=== PATIENT | female | born 1965 | race American Indian/Alaskan Native ===

== ENCOUNTER 2017-06-19 14:28 | Inpatient (IN) | payer BC ==
[~2017-06-19 14:28] MED LIST: ASPIRIN ONE; HEPARIN/ 0.45% NACL-25,000 UNIT/500 ML ONE; NACL 0.9% 1000 ML ONE
[2017-06-19] MEDS ORDERED: NACL 0.9% 1000 ML 1,000 ML ONE (14:34)
[2017-06-19] MEDS ORDERED: HEPARIN 10,000 UNITS/10 ML ONE (14:34)
[2017-06-19] MEDS ORDERED: ZOFRAN ONE (14:34)
[2017-06-19] MEDS ORDERED: HEPARIN/NS 5000 UNIT/500ML(CATH LAB) 1,000 ML IR ONE (14:37)
[2017-06-19] MEDS ORDERED: NITROGLYCERIN SYRINGE 3 ML ONE (14:37)
[2017-06-19] MEDS ORDERED: XYLOCAINE 2% INFILTRATI ONE (14:37)
[2017-06-19] MEDS ORDERED: CALAN ONE (14:37)
[2017-06-19] MEDS ORDERED: BABY ASPIRIN PO ONE (14:41)
--- NOTE | 2017-06-19 14:41 | Emergency Department Report ---
HPI - General Time Seen by Provider: 06/19/17 14:39 - HPI HPI: The patient is a 52-year-old female with a history of diabetes, hypertension, high cholesterol, and whom presents for evaluation of chest pain. The patient reports constant pressure-like midsternal chest pain since approximately 8 AM this morning, moderate in severity, worsening throughout the day. She states that she has experienced on and off similar chest pain during the past 3-4 days. She denies fever, cough, trauma to the chest, hemoptysis, syncope, unilateral leg swelling. She also denies history of previous MO, PE, cancer. ED Review of Systems ROS: Stated complaint: CHEST PAIN Other details as noted in HPI Constitutional: denies: fever ENT: denies: throat or neck pain Respiratory: denies: cough, shortness of breath Cardiovascular: reports: chest pain Endocrine: denies unexplained weight loss or gain Gastrointestinal: denies: abdominal pain, nausea Genitourinary: denies: dysuria Musculoskeletal: denies: leg swelling Skin: denies: rash Neurological: denies: headache Hematological/Lymphatic: denies: easy bleeding or easy bruising Psych: denies sadness or hopelessness Physical Exam - Physical Exam Physical Exam: General: well-nourished, well-developed, no acute distress Head: Normocephalic, atraumatic Eyes: normal sclera ENT: Mucous membranes are pale and dry Neck: trachea midline, neck supple, No neck stiffness, no cervical adenopathy Respiratory: Breath sounds equal bilaterally, no wheezing, rales, or rhonchi Cardio: S1 and S2 present, no murmurs, rubs, gallops, capillary refill is delayed Abdomen: Normoactive bowel sounds, soft abdomen, no rigidity, no guarding or rebound tenderness Musc: No pitting edema Skin: diaphoretic skin Neuro: no facial drooping, normal speech Psych: Normal affect ED Medical Decision Making - Lab Data Result diagrams: 06/19/17 14:45 06/19/17 14:42 - Medical Decision Making The patient was seen and examined by myself. The patient is placed on a client relationship manager and continuous pulse ox. On initial evaluation, the patient was found to be in no distress. Evaluation orders were placed. The patient was given aspirin, nitroglycerin, and IV morphine in route via EMS. EKG exhibits ST elevation in leads 2, 3, aVF, V3, and V4. Code STEMI is called. The on- call net application support specialist Dr. Murrell is contacted. He agrees to accept the patient to the catheter lab for PCI. The on-call hospitalist service was contacted. They agreed to admit the patient. The ED admit order was placed. The patient was admitted in serious condition. Critical care attestation.: If time is entered above; I have spent that time in minutes in the direct care of this critically ill patient, excluding procedure time. ED Disposition Clinical Impression: Acute chest pain, Acute hyperglycemia, ST elevation myocardial infarction ( STEMI) involving left anterior descending (LAD) coronary artery in recovery phase Disposition: DC-[id number] OP ADMIT IP TO THIS HOSP Is pt being admited?: Yes Does the pt Need Aspirin: Yes Condition: Critical Time of Disposition: 14:40
[2017-06-19] MEDS ORDERED: NACL 0.9% 1000 ML 1,000 ML IV ONE ×2 (14:42)
[2017-06-19] MEDS ORDERED: ZOFRAN IV ONE (14:42)
[2017-06-19] MEDS ORDERED: HEPARIN 10,000 UNITS/10 ML IV ONE (14:42)
[2017-06-19] MEDS ORDERED: HEPARIN/NS 5000 UNIT/500ML(CATH LAB) 500 ML IR ONE (14:47)
--- NOTE | 2017-06-19 14:53 | History and Physical Report ---
History of Present Illness Date of examination: 06/19/17 Date of admission: 06/19/2017 Chief complaint: chest pain History of present illness: Pt is a 52 YO female with a past medical history significant for HTN, DM and tobacco use. She is previously unknown to our practice. She presented with c/o chest pain. She reports that for the past 4 days, she has been experiencing intermittent, burning, midsternal chest pain which radiates down her left arm. She denies any clear pattern to this pain and thought it was secondary to indigestion. This morning, she awoke with a little more chest discomfort than usual and the pain got worse throughout the day so she decided to present to ED. She also admits that for the past 1 month, she has been experiencing OSBORNE and midsternal chest pain with minimal activity (climbing a flight of stairs into her apartment). She denies any palpitations, n/v, diaphoresis, dizziness or syncope. Following arrival, ECG demonstrates ST elevations in inferolateral leads and code STEMI was activated. Pt taken to slab tripper for emergent coronary angiography per STEMI protocol. Past History Past Medical History: diabetes, hypertension, other (obesity) Social history: smoking Medications and Allergies Allergies Allergy/AdvReac Type Severity Reaction Status Date / Time Latex, Natural Rubber Allergy Unknown Verified 06/19/17 15:16 Penicillins Allergy Unknown Verified 06/19/17 14:43 Active Meds: Active Medications Sodium Chloride (Nacl 0.9% 1000 Ml) 1,000 mls @ 999 mls/hr IV BOLUS ONE Stop: 06/19/17 15:42 Sodium Chloride (Nacl 0.9% 1000 Ml) 1,000 mls @ 42 mls/hr IV ONCE ONE Stop: 06/20/17 14:30 Review of Systems Constitutional: no weight loss, no weight gain, no fever, no chills, no sweats Ears, nose, mouth and throat: no ear pain, no nose pain, no sinus pressure, no sinus pain Cardiovascular: chest pain, shortness of breath, dyspnea on exertion, high blood pressure, decreased exercise tolerance, no orthopnea, no palpitations, no rapid/irregular heart beat, no edema, no syncope, no lightheadedness, no paroxysmal nocturnal dyspnea, no leg edema Respiratory: shortness of breath, dyspnea on exertion, no cough, no congestion, no pleurisy, no pain on inspiration Gastrointestinal: no abdominal pain, no nausea, no vomiting, no diarrhea, no constipation, no change in bowel habits Genitourinary Female: no pelvic pain, no flank pain, no dysuria, no urinary frequency, no urgency Musculoskeletal: no neck stiffness, no neck pain, no shooting arm pain, no arm numbness/tingling, no low back pain, no shooting leg pain, no leg numbness/ tingling, no redness of joints Integumentary: no rash, no pruritis, no redness, no sores, no wounds Neurological: no head injury, no paralysis, no weakness, no parathesias, no numbness, no tingling, no seizures, no syncope Psychiatric: no anxiety Endocrine: no cold intolerance, no heat intolerance Hematologic/Lymphatic: no easy bruising, no easy bleeding, no lymphadenopathy Allergic/Immunologic: no urticaria, no wheezing, no persistent infections Physical Examination Vital Signs Temp Pulse Resp BP 98.7 F 68 12 92/49 06/19/17 14:32 06/19/17 14:32 06/19/17 14:32 06/19/17 14:32 General appearance: mild distress HEENT: Positive: PERRL Neck: Positive: neck supple, trachea midline Cardiac: Positive: Reg Rate and Rhythm, S1/S2 Lungs: Positive: Decreased Breath Sounds Neuro: Positive: Grossly Intact Abdomen: Positive: Soft. Negative: Tender Skin: Positive: Clear. Negative: Rash, Wound Musculoskeletal: No Fluid Collection, No Pain, Normal Range of Motion Extremities: Absent: edema Results 06/19/17 14:45 06/19/17 14:42 - Imaging and Cardiology Echo: pending EKG: report reviewed, image reviewed EKG interpretations - Telemetry EKG Rhythm: Sinus Rhythm - EKG Sinus rhythms and dysrhythmias: sinus rhythm Repolarization changes or abnormalities: ST or T wave suggestive of ischemia Myocardial infarction: inferior MS (acute or rec, lateral MS (acute or rece Assessment and Plan Assessment: Acute inferolateral STEMI CAD HTN DM Obesity Tobacco use Plan: Pt s/p PCI to LAD. Initiate DAPT, statin, lopressor, lisinopril. Obtain echo. Tx to CCU. The patient has been seen in conjunction with Dr. Alexander who agrees with the assessment and plan of care.
[2017-06-19 14:55] LABS: Mean Corpuscular HGB Conc 31 % (30-34); Mean Corpuscular Volume 77 fl (79-97); Platelet Count 249 K/mm3 (140-440); Red Blood Count 5.31 M/mm3 (3.65-5.03); Red Cell Distribution Width 15.4 % (13.2-15.2)
[2017-06-19 14:56] LABS: Hematocrit 40.8 % (30.3-42.9); Hemoglobin 12.5 gm/dl (10.1-14.3); Mean Corpuscular Hemoglobin 24 pg (28-32)
[2017-06-19 14:59] LABS: INR 0.96 (0.87-1.13); Partial Thromboplastin Time 26.1 Sec. (24.2-36.6)
[2017-06-19] MEDS ORDERED: BENADRYL ONE (15:03)
[2017-06-19] MEDS: VERSED ONE ×2 (15:03→15:17)
[2017-06-19] MEDS: SUBLIMAZE ONE ×3 (15:03→15:59)
[2017-06-19] MEDS: HEPARIN 10,000 UNITS/10 ML ONE ×2 (15:11→15:16)
[2017-06-19 15:12] LABS: BUN/Creatinine Ratio 18; Blood Urea Nitrogen 11 mg/dL (7-17); Calcium 8.8 mg/dL (8.4-10.2); Hemolysis Index 43
--- NOTE | 2017-06-19 15:19 | XRay Report ---
AP CHEST: HISTORY: chest pain No comparison. The interstitium in both lungs is slightly prominent. This probably represents mild interstitial edema. The lungs are clear otherwise. No pleural effusion or pneumothorax. Normal heart and mediastinal structures. The bony thorax is grossly intact. IMPRESSION: Mild pulmonary vascular congestion is suspected.
[2017-06-19] MEDS ORDERED: ALUM-MAG HYDROX-SIMETH 200-200-20MG/5ML ONE (15:50)
[2017-06-19] MEDS ORDERED: BRILINTA ONE (15:50)
[2017-06-19] MEDS ORDERED: D50W (25GM) Syringe IV PRN (16:23)
[2017-06-19] MEDS ORDERED: TYLENOL PO PRN (16:26)
[2017-06-19] MEDS ORDERED: ZOFRAN IV PRN (16:26)
[2017-06-19 17:03] LABS: Basophils % (Manual) 0 % (0.0-1.8); Eosinophils % (Manual) 0 % (0.0-4.3); Total Cells Counted 100
[2017-06-19 17:04] LABS: Anisocytosis 1+; Platelet Estimate Consistent w Auto
--- NOTE | 2017-06-19 17:17 | Cardiac Catherization Report ---
CARDIAC CATHETERIZATION AND CORONARY INTERVENTION REPORT CLINICAL INFORMATION: The patient is a 52-year-old white female with history of hypertension and diabetes having symptoms of chest pain of few months' duration, got worse recently and she is having pain for the last few days and got worse this afternoon. Hence, she came to the Emergency Room at [facility]. EKG showed sinus rhythm with [address] elevations in II, III, aVF and lateral precordial leads. Hence, the patient was brought to the catheterization laboratory as a part of the STEMI protocol on an emergency basis. The patient was explained of the diagnosis and the need for immediate intervention. She understood. She ate not long ago from presentation to the hospital; however, considering the emergency nature, procedure was done immediately. DESCRIPTION OF PROCEDURE: The patient was brought to the catheterization laboratory in nonfasting condition. The patient was prepared with Betadine solution including the right groin area and sterile drapes were applied. The patient was sedated with IV Versed and fentanyl. Subsequently, a right femoral artery puncture was made using 5-Israeli micropuncture needle. A 6-Israeli sheath was introduced. Initially a 6-Israeli JR4 guider was used to engage the right coronary artery. Angiogram showed normal right coronary artery. Hence, a 6-Israeli EBU 3.5 guiding catheter was used to engage the left coronary artery. This showed evidence of tight distal LAD lesion; however LAD is covering the apex and the inferior septum, which can explain her symptoms and EKG changes. After getting the left ventriculogram, this was converted into coronary interventional procedure. The following findings were noted: HEMODYNAMICS: 1. Opening aortic pressure 157/81, left ventricular pressure 157/28. No gradient across the aortic valve. Estimated ejection fraction of 45% -50%. 2. Left ventriculogram done in MORFIN projection using hand injection showed left ventricular size to be upper limits of normal with mild hypokinesis of the distal one-third of the left ventricle. Overall, ejection fraction appears to be lower limits of normal to mildly depressed. Mitral regurgitation could not be evaluated because of limited amount of dye injected. 3. Right coronary artery arises normally from right coronary cusp, nondominant vessel, angiographically smooth and normal. 4. Left coronary artery arises normally from left coronary cusp. LAD showed diffuse calcifications in the proximal, mid, and distal part. Left main without significant disease. Proximal LAD showed mild disease. Mid LAD showed mild irregularities and calcifications. Multiple diagonal branches were seen arising in the mid part. Distal to the origin of these diagonal branches, distal LAD shows long, irregular, probably thrombotic lesion approaching 90% or so in stenosis with NICOLE 3 flow. Distal LAD, which curves around the apex and supplies the inferior septum with mild smooth irregularities. 5. Circumflex artery is a dominant vessel. Circumflex artery and its branch are angiographically smooth and normal. FINAL IMPRESSION: Mild left ventricular dysfunction with hypokinesis of the distal part of the left ventricle including the apex. Ejection fraction around 45-50% with diffuse calcifications of the LAD with tight distal LAD lesion, which was felt to be the culprit lesion for her acute myocardial infarction. Rest of the coronaries showed only mild irregularities and calcifications. At this time, plan is to proceed with intervention of the distal LAD lesion. Coronary intervention of the distal LAD: The patient has indwelling 6-Israeli sheath in the right groin area. The patient has an EBU 3.[address] already. Heparin was given as anticoagulant and subsequently 0.014 inch Paris XT guidewire was advanced into the distal LAD with some difficulty. Lesion was dilated with a 2.5 x 15 mm Trek balloon up to 13 atmospheres with good result. NICOLE 3 flow was noted on the diagnostic angiograms. Subsequently, attempt was made to insert a 3.0 x 18 mm Resolute Integrity stent. However, could not track to the lesion on the Paris guidewire. Also the guiding catheter is not giving good support. Even though Iron Man was used as a second wire still with this guiding catheter. Stent could not be advanced to the lesion. Hence, the whole system was changed. The EBU 3.75 guiding catheter with sideholes was used to engage the left coronary artery. Subsequently, an Iron Man wire was advanced into the mid LAD and the Paris XT wire was advanced all the way to the very distal LAD. Same stent 3.0 x 18 mm Resolute Integrity stent passed without difficulty. It was placed under fluoroscopy in the distal LAD lesion. Dilated initially to 11 atmospheres and subsequently to 13 atmospheres each for 1 minute. Final angiogram showed very good result with no proximal or distal dissection, no perforation noted, no distal embolization noted. The patient tolerated the procedure well without any significant chest pain or cardiac arrhythmia or drop in the blood pressure. At the end of the procedure, angiograms of the right femoral artery were obtained. When it was felt appropriate, a 6-Israeli Perclose device was applied in a standard fashion without difficulty and good hemostasis was achieved. The patient tolerated the procedure well. No untoward complications were noted. The patient's moderate sedation was monitored until the end of the procedure. Patient was sedated at 15:00 hrs,monitoerd upto 15:52 hrs.Patient tolerated sedation well. FINAL IMPRESSION: Uncomplicated drug-eluting stent placement of the distal LAD lesion, 90% lesion was reduced to 0%, probably thrombotic and NICOLE 3 flow was noted pre and post-procedure without any complications of perforation, dissection, or embolization. Perclose device was used to attain hemostasis. Findings were explained to the patient. The patient will be monitored in CCU for the next 24 hours. The patient was given aspirin in addition to Brilinta as the antiplatelet agent. The patient will be started on Lopressor 50 mg b.i.d., lisinopril 10 mg once a day in addition to atorvastatin 80 mg. The patient is a diabetic. Blood sugars will be monitored. No untoward complications were noted. JOB# [id number] BIRGIT/MINNIE BLANCHARD
[2017-06-19 18:45] LABS: Creatine Kinase MB 3.2 ng/mL (0.0-4.0)
[2017-06-19 18:59] LABS: Chol/HDL Ratio 3.95 %
[2017-06-19 21:55] LABS: Creatine Kinase MB 4.9 ng/mL (0.0-4.0)
[2017-06-19] MEDS ORDERED: LOPRESSOR PO SCH (22:00)
[2017-06-19] MEDS: BRILINTA PO SCH (22:51)
[2017-06-19] MEDS: LOPRESSOR PO SCH (22:51)
[2017-06-19] MEDS: HumuLIN R SUB-Q SCH (22:55)
[2017-06-20 04:53] LABS: Basophils # (Auto) 0.1 K/mm3 (0.0-0.1); Basophils % (Auto) 0.7 % (0.0-1.8); Eosinophils # (Auto) 0.1 K/mm3 (0.0-0.4); Eosinophils % (Auto) 0.7 % (0.0-4.3); Hematocrit 36.9 % (30.3-42.9); Hemoglobin 11.6 gm/dl (10.1-14.3); Lymphocytes # (Auto) 3.2 K/mm3 (1.2-5.4); Lymphocytes % (Auto) 33.2 % (13.4-35.0); Mean Corpuscular HGB Conc 31 % (30-34); Mean Corpuscular Volume 74 fl (79-97); Monocytes # (Auto) 0.5 K/mm3 (0.0-0.8); Monocytes % (Auto) 5.5 % (0.0-7.3); Platelet Count 208 K/mm3 (140-440); Red Blood Count 4.97 M/mm3 (3.65-5.03); Red Cell Distribution Width 14.6 % (13.2-15.2)
[2017-06-20 05:00] LABS: Mean Corpuscular Hemoglobin 23 pg (28-32)
[2017-06-20 05:18] LABS: Creatine Kinase MB 8.8 ng/mL (0.0-4.0)
[2017-06-20 05:21] LABS: BUN/Creatinine Ratio 20; Blood Urea Nitrogen 12 mg/dL (7-17); Calcium 8.5 mg/dL (8.4-10.2); Hemolysis Index 2
--- NOTE | 2017-06-20 05:38 | XRay Report ---
FINAL REPORT PROCEDURE: XR CHEST 1V AP TECHNIQUE: Chest radiograph anteroposterior view. CPT 44357 HISTORY: post pci COMPARISON: No prior studies are available for comparison. FINDINGS: Heart: Normal. Mediastinum/Vessels: Normal. Lungs/Pleural space: Lungs are expanded. There are no active infiltrates. There are no effusions or pneumothoraces.. Bony thorax: No acute osseous abnormality. Life support devices: None. IMPRESSION: No acute cardiopulmonary abnormality.
[2017-06-20] MEDS: HumuLIN R SUB-Q SCH ×4 (08:00→21:45)
[2017-06-20] MEDS: BABY ASPIRIN PO SCH (09:34)
[2017-06-20] MEDS: BRILINTA PO SCH ×2 (09:35→21:40)
[2017-06-20] MEDS: LOPRESSOR PO SCH ×2 (09:35→21:40)
--- NOTE | 2017-06-20 09:52 | Progress Note ---
Assessment and Plan Assessment: Acute inferolateral STEMI - s/p PCI to LAD CAD HTN DM - HgbA1C 12.5 Obesity Tobacco use Plan: Optimize anti-hypertensive regimen. Await echo. Consult hospitalists for assistance with DM management. Tx pt out of ICU to telemetry. Assessment and plan reviewed with pt at bedside. The patient has been seen in conjunction with Dr. Alexander who agrees with the assessment and plan of care. Subjective Date of service: 06/20/17 Principal diagnosis: STEMI Interval history: pt resting comfortably, c/o OSBORNE, denies any c/o chest pain. VSS. Objective Last Vital Signs Temp 98.4 F 06/20/17 04:00 Pulse 81 06/20/17 09:36 Resp 21 06/20/17 08:01 BP 156/78 06/20/17 09:36 Pulse Ox 97 06/20/17 09:27 - Physical Examination HEENT: Positive: PERRL Neck: Positive: neck supple, trachea midline Cardiac: Positive: Reg Rate and Rhythm, S1/S2 Lungs: Positive: clear to auscultation Neuro: Positive: Grossly Intact Abdomen: Positive: Soft. Negative: Tender Skin: Positive: Clear. Negative: Rash, Wound Musculoskeletal: No Fluid Collection, No Pain, Normal Range of Motion Extremities: Absent: edema - Labs and Meds Cardiac Enzymes 06/19/17 06/19/17 06/19/17 Range/Units 14:42 18:08 21:25 CK-MB (CK-2) 1.0 3.2 4.9 H (0.0-4.0) ng/mL 06/20/17 Range/Units 04:35 CK-MB (CK-2) 8.8 H (0.0-4.0) ng/mL Coagulation 06/19/17 Range/Units 14:32 PT 13.3 (12.2-14.9) Sec. INR 0.96 (0.87-1.13) APTT 26.1 (24.2-36.6) Sec. Lipids 06/19/17 Range/Units 18:08 Triglycerides 66 (2-149) mg/dL Cholesterol 158 (50-199) mg/dL HDL Cholesterol 40 (40-59) mg/dL Cholesterol/HDL Ratio 3.95 % CBC 06/19/17 06/20/17 Range/Units 14:45 04:35 WBC 12.0 H 9.7 (4.5-11.0) K/mm3 RBC 5.31 H 4.97 (3.65-5.03) M/mm3 Hgb 12.5 11.6 (10.1-14.3) gm/dl Hct 40.8 36.9 (30.3-42.9) % Plt Count 249 208 (140-440) K/mm3 Lymph # Medical Dermatologist 3.2 [place] # Medical Dermatologist 0.5 Eos # Medical Dermatologist 0.1 Baso # Medical Dermatologist 0.1 Comprehensive Metabolic Panel 06/19/17 06/20/17 Range/Units 14:42 04:35 Sodium 136 L 135 L (137-145) mmol/L Potassium 4.3 4.2 (3.6-5.0) mmol/L Chloride 95.9 L 95.7 L (98-107) mmol/L Carbon Dioxide 23 28 (22-30) mmol/L BUN 11 12 (7-17) mg/dL Creatinine 0.6 L 0.6 L (0.7-1.2) mg/dL Glucose 374 H 318 H (65-100) mg/dL Calcium 8.8 8.5 (8.4-10.2) mg/dL - Imaging and Cardiology EKG: report reviewed, image reviewed Echo: pending - Telemetry EKG Rhythm: Sinus Rhythm - EKG Sinus rhythms and dysrhythmias: sinus rhythm Repolarization changes or abnormalities: ST or T wave suggestive of ischemia Myocardial infarction: inferior MT (acute or rec, lateral MT (acute or rece
[2017-06-20] MEDS ORDERED: ZESTRIL PO SCH ×2 (10:00)
[2017-06-20] MEDS ORDERED: ZESTRIL PO ONE (11:00)
--- NOTE | 2017-06-20 11:55 | Consultation ---
History of Present Illness Consult date: 06/20/17 Requesting physician: EBONY HERNANDEZ Reason for consult: other (Acute STEMI) History of present illness: PULMONARY/CCM CONSULT NOTE (Full dictation # [id number]) Please see dictated notes for full details Past History Past Medical History: diabetes, hypertension, other (obesity) Social history: smoking Medications and Allergies Allergies Allergy/AdvReac Type Severity Reaction Status Date / Time Latex, Natural Rubber Allergy Unknown Verified 06/19/17 15:16 Penicillins Allergy Unknown Verified 06/19/17 14:43 Home Medications Medication Instructions Recorded Confirmed Last Taken Type Aspirin [Aspirin BABY CHEW TAB] 81 mg PO QDAY tab.chew 06/20/17 Unknown Rx AtorvaSTATin [Lipitor] 80 mg PO QHS #30 tablet 06/20/17 Unknown Rx Lisinopril [Zestril TAB] 20 mg PO QDAY #30 tablet 06/20/17 Unknown Rx Metoprolol [Lopressor TAB] 50 mg PO BID #60 tablet 06/20/17 Unknown Rx Ticagrelor [Brilinta] 90 mg PO BID #180 tablet 06/20/17 Unknown Rx Active Meds: Active Medications Acetaminophen (Tylenol) 325 mg PO Q6H PRN PRN Reason: Pain, Mild (1-3) Aspirin (Baby Aspirin) 81 mg PO QDAY [facility] Last Admin: 06/20/17 09:34 Dose: 81 mg Atorvastatin Calcium (Lipitor) 80 mg PO QHS [facility] Last Admin: 06/19/17 22:51 Dose: 80 mg Dextrose (D50w (25gm) Syringe) 50 ml IV PRN PRN PRN Reason: Hypoglycemia Sodium Chloride (Nacl 0.9% 1000 Ml) 1,000 mls @ 42 mls/hr IV ONCE ONE Stop: 06/20/17 14:30 Insulin Human Regular (Novolin R) 0 units SUB-Q ACHS [facility]; Protocol Last Admin: 06/20/17 08:00 Dose: 4 units Lisinopril (Zestril) 20 mg PO QDAY [facility] Metoprolol Tartrate (Lopressor) 50 mg PO BID [facility] Last Admin: 06/20/17 09:35 Dose: 50 mg Ondansetron HCl (Zofran) 4 mg IV Q4H PRN PRN Reason: Nausea And Vomiting Ticagrelor (Brilinta) 90 mg PO BID [facility] Last Admin: 06/20/17 09:35 Dose: 90 mg Physical Examination Vital signs: Vital Signs Resp Pulse Ox 12 89 06/19/17 14:28 06/19/17 14:28 Results - Laboratory Findings CBC and BMP: 06/20/17 04:35 06/21/17 06:42 PT/INR, D-dimer PT 13.3 Sec. (12.2-14.9) 06/19/17 14:32 INR 0.96 (0.87-1.13) 06/19/17 14:32 Abnormal lab findings: Abnormal Labs 06/19/17 06/19/17 06/19/17 14:42 14:45 18:08 WBC 12.0 H RBC 5.31 H MCV 77 L MCH 24 L RDW 15.4 H Lymphocytes % (Manual) 42.0 H Sodium 136 L Chloride 95.9 L Creatinine 0.6 L Glucose 374 H POC Glucose Hemoglobin A1c CK-MB (CK-2) CK-MB (CK-2) Rel Index 4.8 H Troponin T 0.051 H D 06/19/17 06/19/17 06/20/17 21:25 21:39 04:35 WBC RBC MCV 74 L MCH 23 L RDW Lymphocytes % (Manual) Sodium Chloride Creatinine Glucose POC Glucose 288 H Hemoglobin A1c CK-MB (CK-2) 4.9 H CK-MB (CK-2) Rel Index 5.7 H Troponin T 0.107 H* D 06/20/17 06/20/17 06/20/17 04:35 04:35 08:14 WBC RBC MCV MCH RDW Lymphocytes % (Manual) Sodium 135 L Chloride 95.7 L Creatinine 0.6 L Glucose 318 H POC Glucose 281 H Hemoglobin A1c 12.5 H CK-MB (CK-2) 8.8 H CK-MB (CK-2) Rel Index 7.6 H Troponin T 0.126 H*
--- NOTE | 2017-06-20 13:58 | Discharge Summary ---
<EBONY HERNANDEZ - Last Filed: 06/20/17 14:08> Providers - Providers Date of Admission: 06/19/17 17:05 Date of discharge: 06/21/17 Attending physician: KAYLEN SIMPSON 06/19/17 Consult to Cardiac Rehabilitation [CONS] Routine Reason For Exam: post pci 06/19/17 16:19 Consult to Physician [CONS] Routine Consulting Provider: JORGE BRUNO Reason For Exam: critical care management s/p stemi Place consult to:: Dr Bruon Notified:: y Phone number called:: IN person Was contact made?: Yes If yes, spoke with:: Dr Bruno 06/19/17 16:23 Consult to Dietitian/Nutrition [CONS] Routine Physician Instructions: Reason For Exam: Reason for Consult: diabetes 06/20/17 10:13 Consult to Physician [CONS] Routine Consulting Provider: CONNOR SILVEIRA Reason For Exam: DM Place consult to:: Jordana Notified:: y Was contact made?: Yes If yes, spoke with:: Dr Silveira Time called:: 11:30 Primary care physician: PULLMAN CONDUCTOR Hospitalization Reason for admission: chest pain; STEMI Condition: Critical Pertinent studies: LHC and echo - see reports Procedures: LHC and echo - see reports Hospital course: Pt is a 52 YO female with a past medical history significant for HTN, DM and tobacco use. She presented with c/o chest pain and was found to have ST elevations in inferolateral leads in ECG and thus code STEMI was activated. She was taken to analytical lab technician for emergent coronary angiography and underwent PCI of LAD. She remained clinically and hemodynamically stable throughout the procedure. She is medically stable for discharge. Disposition: DC-01 TO HOME OR SELFCARE - Discharge Diagnoses (1) ST elevation myocardial infarction (STEMI) of inferolateral wall Status: Acute (2) CAD (coronary artery disease) Status: Chronic (3) Stented coronary artery Status: Chronic (4) HTN (hypertension) Status: Chronic (5) Uncontrolled diabetes mellitus Status: Chronic (6) Dyslipidemia Status: Chronic (7) Obesity Status: Chronic (8) Tobacco use Status: Chronic Core Measure Documentation - Palliative Care Palliative Care/ Comfort Measures: Not Applicable - Core Measures Any of the following diagnoses?: acute FL - Acute FL Discharge Requirements Aspirin at discharge: Yes JAIRO/ARB for LVSD if EF <40%: Yes Beta marry at discharge: Yes Statin for LDL = or >100 mg/dl on DC: Yes Exam - Constitutional Vitals: Temp Pulse Resp BP Pulse Ox 98.4 F 73 15 156/92 98 06/20/17 04:00 06/20/17 12:23 06/20/17 12:00 06/20/17 12:23 06/20/17 12:00 General appearance: Present: no acute distress - EENT Eyes: Present: PERRL, EOM intact ENT: hearing intact, clear oral mucosa - Neck Neck: Present: supple, normal ROM - Respiratory Respiratory effort: normal - Cardiovascular Rhythm: regular Heart Sounds: Present: S1 & S2 - Extremities Extremities: no ischemia, pulses intact, pulses symmetrical Peripheral Pulses: within normal limits - Abdominal General gastrointestinal: Present: soft, non-tender - Integumentary Integumentary: Present: clear, warm, dry - Musculoskeletal Musculoskeletal: strength equal bilaterally, generalized weakness - Psychiatric Psychiatric: appropriate mood/affect, cooperative Plan Activity: advance as tolerated Diet: low fat, low cholesterol, low salt Wound: open to air, keep clean and dry, per your surgeon's advice Follow up with: PRIMARY CARE, [Primary Care Provider] - 7 Days KAYLEN SIMPSON MD [Staff Physician] - 7 Days ([facility], 07/02/2017 @ 2:45PM) Prescriptions: AtorvaSTATin [Lipitor] 80 mg PO QHS #30 tablet Lisinopril [Zestril TAB] 20 mg PO QDAY #30 tablet Metoprolol [Lopressor TAB] 50 mg PO BID #60 tablet Ticagrelor [Brilinta] 90 mg PO BID #180 tablet <KAYLEN SIMPSON - Last Filed: 06/22/17 20:36> Providers - Providers Date of Admission: 06/19/17 17:05 Attending physician: KAYLEN SIMPSON 06/19/17 Consult to Cardiac Rehabilitation [CONS] Routine Reason For Exam: post pci 06/19/17 16:19 Consult to Physician [CONS] Routine Consulting Provider: JORGE BRUNO Reason For Exam: critical care management s/p stemi Place consult to:: Dr Bruno Notified:: y Phone number called:: IN person Was contact made?: Yes If yes, spoke with:: Dr Bruno 06/19/17 16:23 Consult to Dietitian/Nutrition [CONS] Routine Physician Instructions: Reason For Exam: Reason for Consult: diabetes 06/20/17 10:13 Consult to Physician [CONS] Routine Consulting Provider: CONNOR SILVEIRA Reason For Exam: DM Place consult to:: Jordana Notified:: y Was contact made?: Yes If yes, spoke with:: Dr Silveira Time called:: 11:30 Primary care physician: PULLMAN CONDUCTOR Exam - Constitutional Vitals: Temp Pulse Resp BP Pulse Ox 99.1 F 88 18 125/85 100 06/21/17 08:57 06/21/17 10:00 06/21/17 08:57 06/21/17 08:57 06/21/17 08:57
--- NOTE | 2017-06-20 14:42 | Progress Note ---
Assessment and Plan Assessment and plan: Diabetes mellitus type 2. Patient is on metformin at home for diabetic management. However, given the recent catheterization/contrast, metformin has been held. We will increase Lantus to 10 units at bedtime. Continue sliding scale insulin. Acute inferolateral STEMI. Patient is status post PCI to the LAD. Continue DAPT, statin, lopressor, lisinopril. Follow-up echocardiogram. CAD. As above. HTN. Continue current antidepressant medications. Obesity. Tobacco use. Disposition. Patient will be transferred to the floor. History Interval history: Pt is a 52 YO female with a past medical history significant for HTN, DM and tobacco use who presented with c/o chest pain. She reported that for the past 4 days, she has been experiencing intermittent, burning, midsternal chest pain which radiates down her left arm prior to admission. She denies any clear pattern to this pain and thought it was secondary to indigestion. She also admitted that for the past 1 month, she has been experiencing OSBORNE and midsternal chest pain with minimal activity (climbing a flight of stairs into her apartment). She denied any palpitations, n/v, diaphoresis, dizziness or syncope. Following arrival to the emergency room, ECG demonstrates ST elevations in inferolateral leads and code STEMI was activated. Pt taken to laborer beam house for emergent coronary angiography per STEMI protocol. Patient underwent PCI to the LAD. Patient remained in the ICU overnight. Patient is doing well post procedure. No current complaints of chest pain or shortness of breath. Cardiology consulted the hospitalist service for diabetic management. Hospitalist Physical - Constitutional Vitals: Temp Pulse Resp BP Pulse Ox 98.4 F 73 15 156/92 98 06/20/17 04:00 06/20/17 12:23 06/20/17 12:00 06/20/17 12:23 06/20/17 12:00 General appearance: Present: no acute distress - EENT Eyes: Present: PERRL, EOM intact ENT: hearing intact, clear oral mucosa, dentition normal - Neck Neck: Present: supple, normal ROM - Respiratory Respiratory effort: normal Respiratory: bilateral: CTA - Cardiovascular Rhythm: regular Heart Sounds: Present: S1 & S2. Absent: gallop, rub - Extremities Extremities: no ischemia, No edema, Full ROM - Abdominal General gastrointestinal: soft, non-tender, non-distended, normal bowel sounds - Integumentary Integumentary: Present: clear, warm, dry - Neurologic Neurologic: CNII-XII intact, moves all extremities Results - Labs CBC & Chem 7: 06/20/17 04:35 06/20/17 04:35 Labs: Laboratory Last Values WBC 9.7 K/mm3 (4.5-11.0) 06/20/17 04:35 RBC 4.97 M/mm3 (3.65-5.03) 06/20/17 04:35 Hgb 11.6 gm/dl (10.1-14.3) 06/20/17 04:35 Hct 36.9 % (30.3-42.9) 06/20/17 04:35 MCV 74 fl (79-97) L 06/20/17 04:35 MCH 23 pg (28-32) L 06/20/17 04:35 MCHC 31 % (30-34) 06/20/17 04:35 RDW 14.6 % (13.2-15.2) 06/20/17 04:35 Plt Count 208 K/mm3 (140-440) 06/20/17 04:35 Lymph % (Auto) 33.2 % (13.4-35.0) 06/20/17 04:35 Hawkins % (Auto) 5.5 % (0.0-7.3) 06/20/17 04:35 Eos % (Auto) 0.7 % (0.0-4.3) 06/20/17 04:35 Baso % (Auto) 0.7 % (0.0-1.8) 06/20/17 04:35 Lymph # 3.2 K/mm3 (1.2-5.4) 06/20/17 04:35 Hawkins # 0.5 K/mm3 (0.0-0.8) 06/20/17 04:35 Eos # 0.1 K/mm3 (0.0-0.4) 06/20/17 04:35 Baso # 0.1 K/mm3 (0.0-0.1) 06/20/17 04:35 Add Manual Diff Complete 06/19/17 14:45 Total Counted 100 06/19/17 14:45 Seg Neutrophils % 59.9 % (40.0-70.0) 06/20/17 04:35 Seg Neuts % (Manual) 51.0 % (40.0-70.0) 06/19/17 14:45 Band Neutrophils % 0 % 06/19/17 14:45 Lymphocytes % (Manual) 42.0 % (13.4-35.0) H 06/19/17 14:45 Reactive Lymphs % (Man) 0 % 06/19/17 14:45 Monocytes % (Manual) 7.0 % (0.0-7.3) 06/19/17 14:45 Eosinophils % (Manual) 0 % (0.0-4.3) 06/19/17 14:45 Basophils % (Manual) 0 % (0.0-1.8) 06/19/17 14:45 Metamyelocytes % 0 % 06/19/17 14:45 Myelocytes % 0 % 06/19/17 14:45 Promyelocytes % 0 % 06/19/17 14:45 Blast Cells % 0 % 06/19/17 14:45 Nucleated RBC % Not Reportable 06/19/17 14:45 Seg Neutrophils # 5.8 K/mm3 (1.8-7.7) 06/20/17 04:35 Seg Neutrophils # Man 6.1 K/mm3 (1.8-7.7) 06/19/17 14:45 Band Neutrophils # 0.0 K/mm3 06/19/17 14:45 Lymphocytes # (Manual) 5.0 K/mm3 (1.2-5.4) 06/19/17 14:45 Abs React Lymphs (Man) 0.0 K/mm3 06/19/17 14:45 Monocytes # (Manual) 0.8 K/mm3 (0.0-0.8) 06/19/17 14:45 Eosinophils # (Manual) 0.0 K/mm3 (0.0-0.4) 06/19/17 14:45 Basophils # (Manual) 0.0 K/mm3 (0.0-0.1) 06/19/17 14:45 Metamyelocytes # 0.0 K/mm3 06/19/17 14:45 Myelocytes # 0.0 K/mm3 06/19/17 14:45 Promyelocytes # 0.0 K/mm3 06/19/17 14:45 Blast Cells # 0.0 K/mm3 06/19/17 14:45 WBC Morphology Not Reportable 06/19/17 14:45 Hypersegmented Neuts Not Reportable 06/19/17 14:45 Hyposegmented Neuts Not Reportable 06/19/17 14:45 Hypogranular Neuts Not Reportable 06/19/17 14:45 Smudge Cells Not Reportable 06/19/17 14:45 Toxic Granulation Not Reportable 06/19/17 14:45 Toxic Vacuolation Not Reportable 06/19/17 14:45 Dohle Bodies Not Reportable 06/19/17 14:45 Pelger-Huet Anomaly Not Reportable 06/19/17 14:45 Chance Rods Not Reportable 06/19/17 14:45 Platelet Estimate Consistent w auto 06/19/17 14:45 Clumped Platelets Not Reportable 06/19/17 14:45 Plt Clumps, EDTA Not Reportable 06/19/17 14:45 Large Platelets Not Reportable 06/19/17 14:45 Giant Platelets Not Reportable 06/19/17 14:45 Platelet Satelliting Not Reportable 06/19/17 14:45 Plt Morphology Comment Not Reportable 06/19/17 14:45 RBC Morphology Not Reportable 06/19/17 14:45 Dimorphic RBCs Not Reportable 06/19/17 14:45 Polychromasia Not Reportable 06/19/17 14:45 Hypochromasia Not Reportable 06/19/17 14:45 Poikilocytosis Not Reportable 06/19/17 14:45 Anisocytosis 1+ 06/19/17 14:45 Microcytosis Not Reportable 06/19/17 14:45 Macrocytosis Not Reportable 06/19/17 14:45 Spherocytes Not Reportable 06/19/17 14:45 Pappenheimer Bodies Not Reportable 06/19/17 14:45 Sickle Cells Not Reportable 06/19/17 14:45 Target Cells Not Reportable 06/19/17 14:45 Tear Drop Cells Not Reportable 06/19/17 14:45 Ovalocytes Not Reportable 06/19/17 14:45 Helmet Cells Not Reportable 06/19/17 14:45 [place] Bodies Not Reportable 06/19/17 14:45 [place] Rings Not Reportable 06/19/17 14:45 [place] Cells Not Reportable 06/19/17 14:45 Bite Cells Not Reportable 06/19/17 14:45 Crenated Cell Not Reportable 06/19/17 14:45 Elliptocytes Not Reportable 06/19/17 14:45 Acanthocytes (Spur) Not Reportable 06/19/17 14:45 Rouleaux Not Reportable 06/19/17 14:45 Hemoglobin C Crystals Not Reportable 06/19/17 14:45 Schistocytes Not Reportable 06/19/17 14:45 Malaria parasites Not Reportable 06/19/17 14:45 [place] Bodies Not Reportable 06/19/17 14:45 Hem Pathologist Commnt No 06/19/17 14:45 PT 13.3 Sec. (12.2-14.9) 06/19/17 14:32 INR 0.96 (0.87-1.13) 06/19/17 14:32 APTT 26.1 Sec. (24.2-36.6) 06/19/17 14:32 Sodium 135 mmol/L (137-145) L 06/20/17 04:35 Potassium 4.2 mmol/L (3.6-5.0) 06/20/17 04:35 Chloride 95.7 mmol/L (98-107) L 06/20/17 04:35 Carbon Dioxide 28 mmol/L (22-30) 06/20/17 04:35 Anion Gap 16 mmol/L 06/20/17 04:35 BUN 12 mg/dL (7-17) 06/20/17 04:35 Creatinine 0.6 mg/dL (0.7-1.2) L 06/20/17 04:35 Estimated GFR > 60 ml/min 06/20/17 04:35 BUN/Creatinine Ratio 20 % 06/20/17 04:35 Glucose 318 mg/dL (65-100) H 06/20/17 04:35 POC Glucose 251 (70-105) H 06/20/17 12:18 Hemoglobin A1c 12.5 % (4-6) H 06/20/17 04:35 Calcium 8.5 mg/dL (8.4-10.2) 06/20/17 04:35 Total Creatine Kinase 115 units/L (30-135) 06/20/17 04:35 CK-MB (CK-2) 8.8 ng/mL (0.0-4.0) H 06/20/17 04:35 CK-MB (CK-2) Rel Index 7.6 (0-4) H 06/20/17 04:35 Troponin T 0.126 ng/mL (0.00-0.029) H* 06/20/17 04:35 Triglycerides 66 mg/dL (2-149) 06/19/17 18:08 Cholesterol 158 mg/dL (50-199) 06/19/17 18:08 LDL Cholesterol Direct 105 mg/dL (50-130) 06/19/17 18:08 HDL Cholesterol 40 mg/dL (40-59) 06/19/17 18:08 Cholesterol/HDL Ratio 3.95 % 06/19/17 18:08 Blood Type B POSITIVE 06/19/17 14:30 Antibody Screen Negative 06/19/17 14:30
[2017-06-20] MEDS ORDERED: D50W (25GM) Syringe IV PRN (14:43)
[2017-06-20] MEDS: LANTUS SUB-Q SCH (17:37)
[2017-06-20] MEDS ORDERED: LANTUS SUB-Q SCH (22:00)
[2017-06-21] MEDS: HumuLIN R SUB-Q SCH ×2 (00:43→07:53)
[2017-06-21 07:55] LABS: Creatine Kinase MB 2.6 ng/mL (0.0-4.0)
[2017-06-21 07:57] LABS: BUN/Creatinine Ratio 28; Blood Urea Nitrogen 11 mg/dL (7-17); Calcium 8.8 mg/dL (8.4-10.2); Hemolysis Index 11
[2017-06-21 08:58] VITALS: BP 125/85
[2017-06-21] MEDS: LANTUS SUB-Q SCH (09:00)
[2017-06-21] MEDS ORDERED: ZESTRIL PO SCH (10:00)
[2017-06-21] MEDS: BABY ASPIRIN PO SCH (10:45)
[2017-06-21] MEDS: LOPRESSOR PO SCH (10:47)
[2017-06-21] MEDS: BRILINTA PO SCH (10:47)
--- NOTE | 2017-06-21 11:22 | Consultation ---
History of Present Illness - Reason for Consult Consult date: 06/20/17 DM management - History of Present Illness Pt is a 52 YO female with a past medical history significant for HTN, DM and tobacco use who presented with c/o chest pain. She reported that for the past 4 days, she has been experiencing intermittent, burning, midsternal chest pain which radiates down her left arm prior to admission. She denies any clear pattern to this pain and thought it was secondary to indigestion. She also admitted that for the past 1 month, she has been experiencing OSBORNE and midsternal chest pain with minimal activity (climbing a flight of stairs into her apartment). She denied any palpitations, n/v, diaphoresis, dizziness or syncope. Following arrival to the emergency room, ECG demonstrates ST elevations in inferolateral leads and code STEMI was activated. Pt taken to cardiac catheterization technician for emergent coronary angiography per STEMI protocol. Patient underwent PCI to the LAD. Patient remained in the ICU overnight. Patient is doing well post procedure. No current complaints of chest pain or shortness of breath. Cardiology consulted the hospitalist service for diabetic management. Past History Past Medical History: diabetes, hypertension, other (obesity) Social history: smoking Medications and Allergies Allergies Allergy/AdvReac Type Severity Reaction Status Date / Time Latex, Natural Rubber Allergy Unknown Verified 06/19/17 15:16 Penicillins Allergy Unknown Verified 06/19/17 14:43 Home Medications Medication Instructions Recorded Confirmed Last Taken Type Aspirin [Aspirin BABY CHEW TAB] 81 mg PO QDAY tab.chew 06/20/17 Unknown Rx AtorvaSTATin [Lipitor] 80 mg PO QHS #30 tablet 06/20/17 Unknown Rx Lisinopril [Zestril TAB] 20 mg PO QDAY #30 tablet 06/20/17 Unknown Rx Metoprolol [Lopressor TAB] 50 mg PO BID #60 tablet 06/20/17 Unknown Rx Ticagrelor [Brilinta] 90 mg PO BID #180 tablet 06/20/17 Unknown Rx Active Meds: Active Medications Acetaminophen (Tylenol) 325 mg PO Q6H PRN PRN Reason: Pain, Mild (1-3) Aspirin (Baby Aspirin) 81 mg PO QDAY [facility] Last Admin: 06/21/17 10:45 Dose: 81 mg Atorvastatin Calcium (Lipitor) 80 mg PO QHS [facility] Last Admin: 06/20/17 21:39 Dose: 80 mg Dextrose (D50w (25gm) Syringe) 50 ml IV PRN PRN PRN Reason: Hypoglycemia Insulin Glargine (Lantus) 5 units SUB-Q QAMDIAB [facility] Last Admin: 06/21/17 09:00 Dose: 5 units Insulin Glargine (Lantus) 10 units SUB-Q QHS [facility] Last Admin: 06/20/17 21:44 Dose: 10 units Insulin Human Regular (Novolin R) 0 units SUB-Q ACHS [facility]; Protocol Last Admin: 06/21/17 07:53 Dose: 2 units Lisinopril (Zestril) 20 mg PO QDAY [facility] Last Admin: 06/21/17 10:46 Dose: 20 mg Metoprolol Tartrate (Lopressor) 50 mg PO BID [facility] Last Admin: 06/21/17 10:47 Dose: 50 mg Ondansetron HCl (Zofran) 4 mg IV Q4H PRN PRN Reason: Nausea And Vomiting Ticagrelor (Brilinta) 90 mg PO BID [facility] Last Admin: 06/21/17 10:47 Dose: 90 mg Review of Systems All systems: negative Exam - Constitutional Vitals: Temp Pulse Resp BP Pulse Ox 99.1 F 88 18 125/85 100 06/21/17 08:57 06/21/17 10:00 06/21/17 08:57 06/21/17 08:57 06/21/17 08:57 General appearance: Present: no acute distress, well-nourished - EENT Eyes: Present: PERRL ENT: hearing intact, clear oral mucosa - Neck Neck: Present: supple, normal ROM - Respiratory Respiratory effort: normal Respiratory: bilateral: CTA - Cardiovascular Heart Sounds: Present: S1 & S2. Absent: rub, click - Extremities Extremities: pulses symmetrical, No edema Peripheral Pulses: within normal limits - Abdominal General gastrointestinal: Present: soft, non-tender, non-distended, normal bowel sounds Female genitourinary: Present: normal - Integumentary Integumentary: Present: clear, warm, dry - Musculoskeletal Musculoskeletal: gait normal, strength equal bilaterally - Psychiatric Psychiatric: appropriate mood/affect, intact judgment & insight - Neurologic Neurologic: CNII-XII intact, moves all extremities Results - Labs CBC & Chem 7: 06/20/17 04:35 06/21/17 06:42 Labs: Abnormal lab results 06/20/17 06/20/17 06/20/17 Range/Units 12:18 17:20 21:19 Creatinine (0.7-1.2) mg/dL Glucose (65-100) mg/dL POC Glucose 251 H 300 H 221 H (70-105) Troponin T (0.00-0.029) ng/mL 06/21/17 Range/Units 06:42 Creatinine 0.4 L (0.7-1.2) mg/dL Glucose 180 H (65-100) mg/dL POC Glucose (70-105) Troponin T 0.065 H D (0.00-0.029) ng/mL Assessment and Plan Diabetes mellitus type 2. Patient is on metformin at home for diabetic management. However, given the recent catheterization/contrast, metformin has been held. We will increase Lantus to 10 units at bedtime. Continue sliding scale insulin. Acute inferolateral STEMI. Patient is status post PCI to the LAD. Continue DAPT, statin, lopressor, lisinopril. Follow-up echocardiogram. CAD. As above. HTN. Continue current antidepressant medications. Obesity. Tobacco use. Disposition. Patient will be transferred to the floor.
--- NOTE | 2017-06-21 11:23 | Progress Note ---
Assessment and Plan Assessment and plan: Diabetes mellitus type 2. Resume metformin at home diabetic regimen. Consider Lantus nightly. Follow-up with PCP. Acute inferolateral STEMI. Patient is status post PCI to the LAD. Continue DAPT, statin, lopressor, lisinopril. Follow-up echocardiogram. CAD. As above. HTN. Continue current antidepressant medications. Obesity. Tobacco use. Disposition. History Interval history: No new issues overnight. Hospitalist Physical - Constitutional Vitals: Temp Pulse Resp BP Pulse Ox 99.1 F 88 18 125/85 100 06/21/17 08:57 06/21/17 10:00 06/21/17 08:57 06/21/17 08:57 06/21/17 08:57 General appearance: Present: no acute distress - EENT Eyes: Present: PERRL, EOM intact ENT: hearing intact, clear oral mucosa, dentition normal - Neck Neck: Present: supple, normal ROM - Respiratory Respiratory effort: normal Respiratory: bilateral: CTA - Cardiovascular Rhythm: regular Heart Sounds: Present: S1 & S2. Absent: gallop, rub - Extremities Extremities: no ischemia, No edema, Full ROM - Abdominal General gastrointestinal: soft, non-tender, non-distended, normal bowel sounds - Integumentary Integumentary: Present: clear, warm, dry - Neurologic Neurologic: CNII-XII intact, moves all extremities Results - Labs CBC & Chem 7: 06/20/17 04:35 06/21/17 06:42 Labs: Laboratory Last Values WBC 9.7 K/mm3 (4.5-11.0) 06/20/17 04:35 RBC 4.97 M/mm3 (3.65-5.03) 06/20/17 04:35 Hgb 11.6 gm/dl (10.1-14.3) 06/20/17 04:35 Hct 36.9 % (30.3-42.9) 06/20/17 04:35 MCV 74 fl (79-97) L 06/20/17 04:35 MCH 23 pg (28-32) L 06/20/17 04:35 MCHC 31 % (30-34) 06/20/17 04:35 RDW 14.6 % (13.2-15.2) 06/20/17 04:35 Plt Count 208 K/mm3 (140-440) 06/20/17 04:35 Lymph % (Auto) 33.2 % (13.4-35.0) 06/20/17 04:35 [place] % (Auto) 5.5 % (0.0-7.3) 06/20/17 04:35 Eos % (Auto) 0.7 % (0.0-4.3) 06/20/17 04:35 Baso % (Auto) 0.7 % (0.0-1.8) 06/20/17 04:35 Lymph # 3.2 K/mm3 (1.2-5.4) 06/20/17 04:35 [place] # 0.5 K/mm3 (0.0-0.8) 06/20/17 04:35 Eos # 0.1 K/mm3 (0.0-0.4) 06/20/17 04:35 Baso # 0.1 K/mm3 (0.0-0.1) 06/20/17 04:35 Add Manual Diff Complete 06/19/17 14:45 Total Counted 100 06/19/17 14:45 Seg Neutrophils % 59.9 % (40.0-70.0) 06/20/17 04:35 Seg Neuts % (Manual) 51.0 % (40.0-70.0) 06/19/17 14:45 Band Neutrophils % 0 % 06/19/17 14:45 Lymphocytes % (Manual) 42.0 % (13.4-35.0) H 06/19/17 14:45 Reactive Lymphs % (Man) 0 % 06/19/17 14:45 Monocytes % (Manual) 7.0 % (0.0-7.3) 06/19/17 14:45 Eosinophils % (Manual) 0 % (0.0-4.3) 06/19/17 14:45 Basophils % (Manual) 0 % (0.0-1.8) 06/19/17 14:45 Metamyelocytes % 0 % 06/19/17 14:45 Myelocytes % 0 % 06/19/17 14:45 Promyelocytes % 0 % 06/19/17 14:45 Blast Cells % 0 % 06/19/17 14:45 Nucleated RBC % Not Reportable 06/19/17 14:45 Seg Neutrophils # 5.8 K/mm3 (1.8-7.7) 06/20/17 04:35 Seg Neutrophils # Man 6.1 K/mm3 (1.8-7.7) 06/19/17 14:45 Band Neutrophils # 0.0 K/mm3 06/19/17 14:45 Lymphocytes # (Manual) 5.0 K/mm3 (1.2-5.4) 06/19/17 14:45 Abs React Lymphs (Man) 0.0 K/mm3 06/19/17 14:45 Monocytes # (Manual) 0.8 K/mm3 (0.0-0.8) 06/19/17 14:45 Eosinophils # (Manual) 0.0 K/mm3 (0.0-0.4) 06/19/17 14:45 Basophils # (Manual) 0.0 K/mm3 (0.0-0.1) 06/19/17 14:45 Metamyelocytes # 0.0 K/mm3 06/19/17 14:45 Myelocytes # 0.0 K/mm3 06/19/17 14:45 Promyelocytes # 0.0 K/mm3 06/19/17 14:45 Blast Cells # 0.0 K/mm3 06/19/17 14:45 WBC Morphology Not Reportable 06/19/17 14:45 Hypersegmented Neuts Not Reportable 06/19/17 14:45 Hyposegmented Neuts Not Reportable 06/19/17 14:45 Hypogranular Neuts Not Reportable 06/19/17 14:45 Smudge Cells Not Reportable 06/19/17 14:45 Toxic Granulation Not Reportable 06/19/17 14:45 Toxic Vacuolation Not Reportable 06/19/17 14:45 Dohle Bodies Not Reportable 06/19/17 14:45 Pelger-Huet Anomaly Not Reportable 06/19/17 14:45 Chance Rods Not Reportable 06/19/17 14:45 Platelet Estimate Consistent w auto 06/19/17 14:45 Clumped Platelets Not Reportable 06/19/17 14:45 Plt Clumps, EDTA Not Reportable 06/19/17 14:45 Large Platelets Not Reportable 06/19/17 14:45 Giant Platelets Not Reportable 06/19/17 14:45 Platelet Satelliting Not Reportable 06/19/17 14:45 Plt Morphology Comment Not Reportable 06/19/17 14:45 RBC Morphology Not Reportable 06/19/17 14:45 Dimorphic RBCs Not Reportable 06/19/17 14:45 Polychromasia Not Reportable 06/19/17 14:45 Hypochromasia Not Reportable 06/19/17 14:45 Poikilocytosis Not Reportable 06/19/17 14:45 Anisocytosis 1+ 06/19/17 14:45 Microcytosis Not Reportable 06/19/17 14:45 Macrocytosis Not Reportable 06/19/17 14:45 Spherocytes Not Reportable 06/19/17 14:45 Pappenheimer Bodies Not Reportable 06/19/17 14:45 Sickle Cells Not Reportable 06/19/17 14:45 Target Cells Not Reportable 06/19/17 14:45 Tear Drop Cells Not Reportable 06/19/17 14:45 Ovalocytes Not Reportable 06/19/17 14:45 Helmet Cells Not Reportable 06/19/17 14:45 [place]an[place] Bodies Not Reportable 06/19/17 14:45 [place] Rings Not Reportable 06/19/17 14:45 [place]mo Cells Not Reportable 06/19/17 14:45 Bite Cells Not Reportable 06/19/17 14:45 Crenated Cell Not Reportable 06/19/17 14:45 Elliptocytes Not Reportable 06/19/17 14:45 Acanthocytes (Spur) Not Reportable 06/19/17 14:45 Rouleaux Not Reportable 06/19/17 14:45 Hemoglobin C Crystals Not Reportable 06/19/17 14:45 Schistocytes Not Reportable 06/19/17 14:45 Malaria parasites Not Reportable 06/19/17 14:45 [place] Bodies Not Reportable 06/19/17 14:45 Hem Pathologist Commnt No 06/19/17 14:45 PT 13.3 Sec. (12.2-14.9) 06/19/17 14:32 INR 0.96 (0.87-1.13) 06/19/17 14:32 APTT 26.1 Sec. (24.2-36.6) 06/19/17 14:32 Sodium 141 mmol/L (137-145) 06/21/17 06:42 Potassium 3.9 mmol/L (3.6-5.0) 06/21/17 06:42 Chloride 100.3 mmol/L (98-107) 06/21/17 06:42 Carbon Dioxide 26 mmol/L (22-30) 06/21/17 06:42 Anion Gap 19 mmol/L 06/21/17 06:42 BUN 11 mg/dL (7-17) 06/21/17 06:42 Creatinine 0.4 mg/dL (0.7-1.2) L 06/21/17 06:42 Estimated GFR > 60 ml/min 06/21/17 06:42 BUN/Creatinine Ratio 28 % 06/21/17 06:42 Glucose 180 mg/dL (65-100) H 06/21/17 06:42 POC Glucose 221 (70-105) H 06/20/17 21:19 Hemoglobin A1c 12.5 % (4-6) H 06/20/17 04:35 Calcium 8.8 mg/dL (8.4-10.2) 06/21/17 06:42 Total Creatine Kinase 87 units/L (30-135) 06/21/17 06:42 CK-MB (CK-2) 2.6 ng/mL (0.0-4.0) 06/21/17 06:42 CK-MB (CK-2) Rel Index 2.9 (0-4) 06/21/17 06:42 Troponin T 0.065 ng/mL (0.00-0.029) H D 06/21/17 06:42 Triglycerides 66 mg/dL (2-149) 06/19/17 18:08 Cholesterol 158 mg/dL (50-199) 06/19/17 18:08 LDL Cholesterol Direct 105 mg/dL (50-130) 06/19/17 18:08 HDL Cholesterol 40 mg/dL (40-59) 06/19/17 18:08 Cholesterol/HDL Ratio 3.95 % 06/19/17 18:08 Blood Type B POSITIVE 06/19/17 14:30 Antibody Screen Negative 06/19/17 14:30
--- NOTE | 2017-06-22 23:12 | Consultation ---
PULMONARY CRITICAL CARE CONSULT NOTE CONSULTING PHYSICIAN: Dr. Alexander REASON FOR CONSULTATION: Acute ST elevation myocardial infarction, status post coronary intervention, need for ICU monitoring. CHIEF COMPLAINT AND HISTORY OF PRESENT ILLNESS: As follows, the patient is a 52-year-old -[place] female with past medical history significant amongst other things for diagnoses of diabetes as well as high blood pressure, presented to the Emergency Room complaining of 3-4 days' of chest pain. It was intermittent and burning at times. It was mostly midsternal, radiating down her left arm, initially thought nothing of it, thought it was due to indigestion. On the morning of presentation, the pain and discomfort was worse than usual. It was worse with exertion. It got worse throughout the whole day, so she came into the Emergency Room. She also admitted due to dyspnea on exertion really for the past 3-4 weeks, described as worse than expected pain when climbing a flight of stairs into her apartment. She had denied any actual loss of consciousness, palpitations, or diaphoresis; denied nausea, vomiting in the Emergency Room. EKG revealed ST elevations in the inferolateral leads. A code STEMI was called and the patient was transferred emergently to the public works lab[facility]. While in the public works [facility], she had percutaneous intervention to the left anterior descending and postop she was transferred to the Intensive Care Unit. When I stopped by to see her, she was resting peacefully, denied any recurrence of the chest pain, denied any nausea or vomiting, denied fevers or chills. When asked about her tobacco use/abuse history, she admits to about a 10+ pack year tobacco smoking history. This really is as much of the history of presentation. I should mention that also diabetes is poorly controlled. PAST MEDICAL HISTORY: Diabetes, hypertension. She is obese. Tobacco use disorder. PAST SURGICAL HISTORY: Unknown. MEDICATIONS: She was on at the time I stopped by to see her, according to the medication administration record, had included the following: Tylenol p.r.n., aspirin 81 mg p.o. daily, Lipitor 80 mg p.o. at bedtime, insulin via sliding scale, lisinopril 20 mg p.o. daily, Lopressor 50 mg p.o. b.i.d., Zofran 4 mg IV q. 4 hours p.r.n. nausea and vomiting, Brilinta 90 mg p.o. b.i.d. ALLERGIES: TO LATEX AND TO PENICILLINS. Nature of this allergy is unknown. DIET: Morbidly obese. She denies significant weight loss or gain in the preceding few weeks to months. FAMILY AND SOCIAL HISTORY: Apparently lives in the community. She does have a tobacco smoking history about 10+ pack years. Denies illicit drug use or abuse. Family history otherwise is noncontributory. REVIEW OF SYSTEMS: Denies any loss of consciousness. No new onset seizures. She had the dyspnea on exertion. She denied orthopnea; denied gross hematochezia or melena; denies gross hematuria or dysuria. Complete 13-system review of systems obtained. Pertinent positives and/or negatives as in the body of history above, otherwise they are noncontributory. PHYSICAL EXAMINATION: VITAL SIGNS: At initial presentation and since she has been afebrile presentation, temperature 98.7 degrees Fahrenheit, pulse of 68, respiratory rate of 12, blood pressure 92/49, oxygen sats were ____, inspired oxygen concentration was not recorded. GENERAL: Morbidly obese -[place] female, looks her stated age, normocephalic, atraumatic, talking to me in full sentences at worst in mild respiratory distress. Head, Eyes, EARS, NOSE AND THROAT: She is anicteric. No conjunctival erythema. Oropharynx is a Mallampati #3-4 oropharynx. Oropharynx is moist. NECK: Grossly no jugular venous distention. Grossly, no thyromegaly. Grossly, no palpable lymph nodes in the supraclavicular or submandibular lymph node chains. LUNGS: Auscultation of both lung valdez are unremarkable. Lungs are clear bilaterally; however, breath sounds are diminished. ABDOMEN: Soft, full, bowel sounds are positive, nontender. No palpable hepatomegaly. EXTREMITIES: Without overt digital clubbing. No cyanosis, no pedal edema. Dorsalis pedis pulses are palpable bilaterally. NEUROLOGIC: The pupils are equal, round, reactive to light about 3 mm. Extraocular muscle movements are intact. She moves all 4 extremities spontaneously. The skin is of normal turgor. No rash, no cellulitis. LABORATORY AND DIAGNOSTIC DATA: From my review are as follows: Admission white cell count 12,000 with the hemoglobin of 12.5, hematocrit of 40.8, platelet count 249. No band forms. INR is 0.96. Serum sodium is 136, potassium 4.3, chloride 96, bicarbonate 23, BUN 11, creatinine 0.6, glucose 374. Initial troponin was within normal limits. It has peaked as of now at 0.126. BUN and creatinine are still within normal limits. MCV is 74; however, the hemoglobin is 11.6. I do not have any microbiology studies for review. Chest x-ray was done. I have reviewed the chest x-ray. I have also reviewed the radiologist's interpretation and I do agree essentially mild interstitial edema. The film is rotated to the left, fluid in the minor fissure. No gross pneumothorax, no gross bony fractures that I can see. No overt cardiomegaly. That was the admission chest x-ray. Today's chest x-ray shows mild improvement in the interstitial edema pattern. ASSESSMENT: 1. Acute coronary syndrome with an acute ST elevation myocardial infarction. 2. Poorly controlled diabetes. I am saying this because her hemoglobin A1c was measured at 12.5. 3. Obesity. 4. History of hypertension. 5. Tobacco use disorder. PLAN: 1. I have stressed the importance of her being as compliant as she can be with her disease-modifying medications with relation to the acute coronary syndrome as she certainly is going to be at risk for decompensation and complications. I have expressed that also the importance that she controls her diabetes much better and pay more attention to her health. I have also told her that she will need to be evaluated in a Sleep Clinic to rule out comorbid presence of obstructive sleep apnea, which her phenotype suggests she may have in some of the history she is given Tobacco cessation has been strongly consult. She is going to be on GI prophylaxis. Flu and pneumonia vaccination will be addressed per protocol. Thank you very much for the consult. We will plan to transfer her out of the Intensive Care Unit. She is looking stable. If it is okay with the primary physician, she will be transferred to the telemetry floor. We will follow along. We will make further recommendations as picture progresses/becomes clearer. JOB# [id number] DORENE/MINNIE
== END 2017-06-21 12:22 | disposition home or self-care (01) | DRG 246 ==
LOC: ED 14:28 → OR 15:29 → CC1 17:05 → 4A 06-20 14:15
PROVIDERS: ADMIT Internal Medicine; ATTEND Internal Medicine
PROC: 027034Z Dilation of Coronary Artery, One Artery with Drug-eluting Intraluminal Device, Percutaneous Approach (ICD-10-PCS; principal; 2017-06-19)
PROC: 4A023N7 Measurement of Cardiac Sampling and Pressure, Left Heart, Percutaneous Approach (ICD-10-PCS; 2017-06-19)
PROC: B2151ZZ Fluoroscopy of Left Heart using Low Osmolar Contrast (ICD-10-PCS; 2017-06-19)
PROC: B2111ZZ Fluoroscopy of Multiple Coronary Arteries using Low Osmolar Contrast (ICD-10-PCS; 2017-06-19)
DX: I25.10 Atherosclerotic heart disease of native coronary artery without angina pectoris (principal); I21.11 ST elevation (STEMI) myocardial infarction involving right coronary artery; Z88.0 Allergy status to penicillin; Z88.8 Allergy status to other drugs, medicaments and biological substances; E11.9 Type 2 diabetes mellitus without complications; I10 Essential (primary) hypertension; E78.00 Pure hypercholesterolemia, unspecified; F17.200 Nicotine dependence, unspecified, uncomplicated; E66.9 Obesity, unspecified; Z68.39 Body mass index [BMI] 39.0-39.9, adult; Z79.82 Long term (current) use of aspirin; Z79.899 Other long term (current) drug therapy
CPT/HCPCS: 36415; 71045; 80048; 80061; 82550; 82553; 82962; 83036; 84484; 85007; 85025; 85347; 85610; 85730; 86850; 86900; 86901; 92941; 93005; 93010; 93306; 93458; 94760; 96361; 96374; 96375; 99406; A9270-GY; C1725; C1760; C1769; C1874; C1887; C1894; C9606; J1200; J1644; J1815; J2250; J2405; J3010; J7030; Q9967

== ENCOUNTER 2017-09-01 01:36 | Emergency (ER) | payer BC ==
[2017-09-01 02:06] VITALS: BP 147/72
[2017-09-01] MEDS ORDERED: ASPIRIN PO ONE (02:07)
[2017-09-01 03:03] LABS: Basophils % (Auto) 0.2 % (0.0-1.8); Eosinophils # (Auto) 0.1 K/mm3 (0.0-0.4); Eosinophils % (Auto) 0.9 % (0.0-4.3); Hematocrit 36.4 % (30.3-42.9); Hemoglobin 11.8 gm/dl (10.1-14.3); Lymphocytes # (Auto) 3.2 K/mm3 (1.2-5.4); Lymphocytes % (Auto) 27.1 % (13.4-35.0); Mean Corpuscular HGB Conc 32 % (30-34); Mean Corpuscular Volume 72 fl (79-97); Monocytes # (Auto) 0.7 K/mm3 (0.0-0.8); Monocytes % (Auto) 5.9 % (0.0-7.3); Platelet Count 236 K/mm3 (140-440); Red Blood Count 5.07 M/mm3 (3.65-5.03); Red Cell Distribution Width 14.5 % (13.2-15.2)
[2017-09-01 03:05] LABS: Mean Corpuscular Hemoglobin 23 pg (28-32)
[2017-09-01 03:07] LABS: INR 0.96 (0.87-1.13)
[2017-09-01 03:08] LABS: Partial Thromboplastin Time 25.4 Sec. (24.2-36.6)
[2017-09-01 03:17] LABS: BUN/Creatinine Ratio 27; Blood Urea Nitrogen 19 mg/dL (7-17); Calcium 8.9 mg/dL (8.4-10.2); Hemolysis Index 6
== END 2017-09-01 02:36 | disposition left against medical advice (07) ==
LOC: ED 01:36
DX: R07.9 Chest pain, unspecified (principal); Z53.21 Procedure and treatment not carried out due to patient leaving prior to being seen by health care provider
CPT/HCPCS: 36415; 80048; 84484; 85025; 85610; 85730; 93005; 93010